=== PATIENT | female | born 1985 | race African-American/Black ===

== ENCOUNTER 2020-01-08 16:17 | Outpatient (REF) | payer BC, SELFPAY ==
[2020-01-08 16:47] LABS: MANUAL DIFF FLAG NO
[2020-01-08 16:51] LABS: Basophils Absolute Auto 0.1 X10*3/uL (0.0-0.2); Basophils Percent Auto 0.6 % (0-2); Eosinophils Absolute Auto 0.2 X10*3/uL (0.0-0.4); Eosinophils Percent Auto 2.3 % (0-4); Hematocrit 38.7 % (37-47); Hemoglobin 12.9 g/dl (12.0-16.0); Imm Gran Abs Auto 0.02 X10*3/uL (0.00-0.03); Imm Gran Pct Auto 0.2 % (0.0-0.4); Lymphocytes Absolute Auto 2.4 X10*3/uL (1.2-4.9); Lymphocytes Percent Auto 27.1 % (20-40); Mean Corpuscular HGB Conc 33.3 g/dl (31.0-35.0); Mean Corpuscular Hemoglobin 32.7 pg (27.0-33.0); Mean Corpuscular Volume 98.2 fL (80-98); Mean Platelet Volume 9.9 fL (9.4-12.3); Monocytes Absolute Auto 0.7 X10*3/uL (0.1-1.2); Monocytes Percent Auto 7.2 % (2-11); Neutrophils Absolute Auto 5.6 X10*3/uL (2.0-8.3); Neutrophils Percent Auto 62.6 % (45-73); Platelet Count 338 X10*3/uL (160-400); Red Blood Count 3.94 X10*6/uL (4.20-5.50); Red Cell Distribution Width 11.9 % (11.0-16.0)
[2020-01-08 17:18] LABS: Alanine Aminotransferase 12 U/L (0-31); Alkaline Phosphatase 151 U/L (39-117); Anion Gap 11 (12-20); Aspartate Amino Transferase 14 U/L (5-31); Bilirubin Total 0.4 mg/dL (0.0-1.0); Blood Urea Nitrogen 9 mg/dL (9-16); C Reactive Protein 0.55 mg/dL (< or = 0.50); Calcium 8.9 mg/dL (8.4-10.2); Carbon Dioxide 28 mmol/L (22-29); Chloride 103 mmol/L (96-108); Estimated Glomerular Filt Rate > 60; Glucose Random 97 mg/dL (60-115); Potassium 3.7 mmol/l (3.3-5.1); Sodium 138 mmol/L (135-145); Total Protein 7.2 g/dL (6.5-8.0)
[2020-01-08 17:36] LABS: Erythrocyte Sedimentation Rate 25 MM/HR (0-20)
[2020-01-08 17:38] LABS: Ferritin 92 ng/mL (10-122)
[2020-01-08 18:19] LABS: Folate > 20.0 ng/mL (> or = 4.0); Vitamin B12 743 pg/mL (200-900)
[2020-01-09 16:12] LABS: Immunoglobulin G 1614 mg/dL (600-1640)
[2020-01-11 16:31] LABS: Zinc 68 mcg/dL (60-130)
== END 2020-01-08 16:18 | disposition home or self-care (01) ==
LOC: HO.LAB 16:17
PROVIDERS: Visit Provider Internal Medicine Gastroenterology
DX: K50.90 Crohn's disease, unspecified, without complications (principal)
CPT/HCPCS: 36415; 80053; 82607; 82728; 82746; 82784; 84630; 85025; 85652; 86140

== ENCOUNTER 2020-01-31 | Outpatient (REF) | payer BC, SELFPAY ==
[2020-02-05 17:37] LABS: Calprotectin, Fecal 126 mcg/g
== END 2020-01-31 00:01 | disposition home or self-care (01) ==
LOC: CF
PROVIDERS: Visit Provider Internal Medicine Gastroenterology
DX: K50.90 Crohn's disease, unspecified, without complications (principal)
CPT/HCPCS: 83993; 87324; 87449

== ENCOUNTER → 2020-02-12 12:07 | Outpatient (BNVA) | payer BC, SELFPAY | PROVIDERS: PCP Physician Assistant Medical; Referring Provider Physician Assistant Medical; Visit Provider Internal Medicine Gastroenterology | DX: Z76.89 Persons encountering health services in other specified circumstances (principal) ==

== ENCOUNTER → 2020-04-15 14:02 | Outpatient (BNVA) | payer BC, SELFPAY | PROVIDERS: PCP Physician Assistant Medical; Visit Provider Internal Medicine Gastroenterology | DX: Z76.89 Persons encountering health services in other specified circumstances (principal) ==

== ENCOUNTER 2020-06-19 15:50 | Outpatient (REF) | payer BC, SELFPAY ==
--- NOTE | ~2020-06-19 | XR_ITS ---
EXAMINATION: XR THORACIC SPINE XR LUMBAR SPINE XR AP PELVIS CLINICAL INFORMATION: Dorsalgia COMPARISON: None TECHNIQUE: 3 views lumbar spine, 2 views dorsal spine and AP pelvis one view. FINDINGS: DORSAL SPINE: There is normal thoracic kyphosis. The vertebral heights, alignment and disc heights are normal. LUMBAR SPINE: There is normal lumbar lordosis. The vertebral heights, alignment and disc heights are normal. No visible acute fracture, dislocation or subluxation seen. Moderate stool is seen in the colon. The paravertebral soft tissues are normal. There is evidence of previous cholecystectomy. AP PELVIS: There is normal symmetry of bilateral SI joints and hip joints. No visible fracture or dislocation or lytic process seen. The soft tissues are normal. There is IUD within the pelvis. XR/XR thoracic spine 3V IMPRESSION: 1. Unremarkable dorsal spine exam. 2. Unremarkable lumbar spine exam. 3. Unremarkable AP pelvis.
--- NOTE | ~2020-06-19 | XR_ITS ---
EXAMINATION: XR THORACIC SPINE XR LUMBAR SPINE XR AP PELVIS CLINICAL INFORMATION: Dorsalgia COMPARISON: None TECHNIQUE: 3 views lumbar spine, 2 views dorsal spine and AP pelvis one view. FINDINGS: DORSAL SPINE: There is normal thoracic kyphosis. The vertebral heights, alignment and disc heights are normal. LUMBAR SPINE: There is normal lumbar lordosis. The vertebral heights, alignment and disc heights are normal. No visible acute fracture, dislocation or subluxation seen. Moderate stool is seen in the colon. The paravertebral soft tissues are normal. There is evidence of previous cholecystectomy. AP PELVIS: There is normal symmetry of bilateral SI joints and hip joints. No visible fracture or dislocation or lytic process seen. The soft tissues are normal. There is IUD within the pelvis. XR/XR pelvis 1-2V IMPRESSION: 1. Unremarkable dorsal spine exam. 2. Unremarkable lumbar spine exam. 3. Unremarkable AP pelvis.
--- NOTE | ~2020-06-19 | XR_ITS ---
EXAMINATION: XR THORACIC SPINE XR LUMBAR SPINE XR AP PELVIS CLINICAL INFORMATION: Dorsalgia COMPARISON: None TECHNIQUE: 3 views lumbar spine, 2 views dorsal spine and AP pelvis one view. FINDINGS: DORSAL SPINE: There is normal thoracic kyphosis. The vertebral heights, alignment and disc heights are normal. LUMBAR SPINE: There is normal lumbar lordosis. The vertebral heights, alignment and disc heights are normal. No visible acute fracture, dislocation or subluxation seen. Moderate stool is seen in the colon. The paravertebral soft tissues are normal. There is evidence of previous cholecystectomy. AP PELVIS: There is normal symmetry of bilateral SI joints and hip joints. No visible fracture or dislocation or lytic process seen. The soft tissues are normal. There is IUD within the pelvis. XR/XR lumbar spine 2-3V IMPRESSION: 1. Unremarkable dorsal spine exam. 2. Unremarkable lumbar spine exam. 3. Unremarkable AP pelvis.
[2020-06-19 18:04] LABS: MANUAL DIFF FLAG NO
[2020-06-19 18:19] LABS: Basophils Absolute Auto 0.1 X10*3/uL (0.0-0.2); Basophils Percent Auto 0.7 % (0-2); Eosinophils Absolute Auto 0.2 X10*3/uL (0.0-0.4); Eosinophils Percent Auto 2.9 % (0-4); Hematocrit 37.2 % (37-47); Hemoglobin 12.4 g/dl (12.0-16.0); Imm Gran Abs Auto 0.02 X10*3/uL (0.00-0.03); Imm Gran Pct Auto 0.3 % (0.0-0.4); Lymphocytes Absolute Auto 2.6 X10*3/uL (1.2-4.9); Lymphocytes Percent Auto 34.4 % (20-40); Mean Corpuscular HGB Conc 33.3 g/dl (31.0-35.0); Mean Corpuscular Hemoglobin 31.9 pg (27.0-33.0); Mean Corpuscular Volume 95.6 fL (80-98); Mean Platelet Volume 10.2 fL (9.4-12.3); Monocytes Absolute Auto 0.6 X10*3/uL (0.1-1.2); Monocytes Percent Auto 7.7 % (2-11); Neutrophils Absolute Auto 4.1 X10*3/uL (2.0-8.3); Platelet Count 325 X10*3/uL (160-400); Red Blood Count 3.89 X10*6/uL (4.20-5.50); White Blood Count 7.6 X10*3/uL (4.8-10.8)
[2020-06-19 19:06] LABS: Erythrocyte Sedimentation Rate 23 MM/HR (0-20)
[2020-06-19 19:37] LABS: Alanine Aminotransferase 9 U/L (0-31); Albumin Level 3.9 g/dL (3.5-5.0); Alkaline Phosphatase 153 U/L (39-117); Anion Gap 12 (12-20); Aspartate Amino Transferase 15 U/L (5-31); Bilirubin Total 0.5 mg/dL (0.0-1.0); Blood Urea Nitrogen 11 mg/dL (9-16); C Reactive Protein 0.28 mg/dL (< or = 0.50); Calcium 8.4 mg/dL (8.4-10.2); Carbon Dioxide 26 mmol/L (22-29); Chloride 103 mmol/L (96-108); Estimated Glomerular Filt Rate > 60; Glucose Random 76 mg/dL (60-115); Potassium 4.2 mmol/L (3.3-5.1); Sodium 137 mmol/L (135-145); Total Protein 7.2 g/dL (6.5-8.0)
== END 2020-06-19 15:51 | disposition home or self-care (01) ==
LOC: HO.LAB 15:50
PROVIDERS: Absent Provider Internal Medicine Gastroenterology; PCP Internal Medicine; Visit Provider Student in an Organized Health Care Education/Training Program
DX: K50.119 Crohn's disease of large intestine with unspecified complications (principal); M54.9 Dorsalgia, unspecified
CPT/HCPCS: 36415; 72072; 72100; 72170; 80053; 85025; 85652; 86140

== ENCOUNTER 2020-07-08 15:00 | Outpatient (RCR) | payer BC, SELFPAY ==
--- NOTE | 2020-06-28 16:52 | MHC.PT.EP ---
[facility] [place] Office [place] Office [place] Office [address] Adelita Regalado [address] [phone] F: [phone] F: [phone] F: [phone] F: [phone] Physical Therapy Plan of Care Date of Evaluation: 06/28/20 Date of Surgery: NA Diagnosis: DORSALGIA Assessment: Pt IS 35 YO F REFERRED TO PT FROM DR DE LA FUENET WITH DORSALGIA. PRESENTS WITH C/O 2 YR HX OF BACK PAIN OF INSIDIOUS ONSET. 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 PRESENTS WITH GOOD TRUNK ROM AND LE STRENGTH. HAS SOME DECREASED CORE STRENGTH AND DECREASED HS FLEXIBILITY. Pt REPORTS COMFORT WITH TRUNK LAT STRETCHING AND PRONE POSITION. SHOULD BENEFIT FROM PT TO ADDRESS THESE ISSUES. OF NOTE, Pt HAS 45$ COPAY SO MAY BENEFIT FROM 1X/WK. Frequency and Duration: The patient will be seen 1X/WK X 4 WKS Short Term Goals: 1. I HEP WITH DC EX PLAN 2. INCREASED AWARENESS POSTURE AND BACK CARE [place] Helper Goals: 1. DECREASED BACK PAIN AT LEAST 50% WITH ADLS 2. Pt TO PERF 2-3 TASKS WITH PROPER BODY MECH 3. INCREASED HS FLEXIBILITY 5-10 DEGREES B Treatment Plan: Modalities to reduce pain, spasms and effusion. Manual therapy to restore motion and function. Therapeutic exercise to improve strength and flexibility. Neuromuscular re-education for posture and balance. Therapeutic activities to return to functional activities of daily living. Electronically signed by: LUAN MILES PT Please sign and return to therapist. Thank you for your referral.
--- NOTE | 2020-07-27 14:13 | MHC.PT.DC ---
[place] Office [place] Office [place] Office [address] Adelita Regalado [address] [phone] F: [phone] F: [phone] F: [phone] F: [phone] Physical Therapy Discharge Report Diagnosis: DORSALGIA Date of Surgery: NA Date of Evaluation: 06/28/20 Date of Discharge: 07/27/20 Treatments to Date: 2 Cancellations to Date: No Shows to Date: Discharge Status: Improved Function Independent with HEP Patient Elected to Stop Discharge Summary: Pt LAST SEEN ON July REPORTING I THINK TODAY WILL BE MY LAST VISIT ..PER ASSESSMENT ON THAT DATE: Pt WITH GOOD PERF OF EXS/STRETCHES AND CUES, DIST EX SHEET AND OCHOA TB TODAY. ED THAT TYPICALLY SEE PtS MORE THAN 2 SESSIONS (Pt HAS 45$ CO-PAY). MD [place] SOON Electronically signed by: LUAN MILES PT Please sign and return to therapist. Thank you for your referral.
== END 2020-07-27 14:14 | disposition other institution (70) ==
LOC: HO.PT 15:00
PROVIDERS: PCP Internal Medicine; Visit Provider Student in an Organized Health Care Education/Training Program
DX: M54.9 Dorsalgia, unspecified (principal)
CPT/HCPCS: 97110; 97140; 97161

== ENCOUNTER 2020-07-22 18:11 | Outpatient (REF) | payer BC, SELFPAY ==
[2020-07-29 21:17] LABS: Calprotectin, Fecal 77 mcg/g
== END 2020-07-22 18:12 | disposition home or self-care (01) ==
LOC: HO.LNP 18:11
PROVIDERS: Visit Provider Internal Medicine Gastroenterology
DX: M54.9 Dorsalgia, unspecified (principal); K50.119 Crohn's disease of large intestine with unspecified complications
CPT/HCPCS: 83993

== ENCOUNTER → 2020-07-23 13:16 | Outpatient (BNVA) | payer BC, SELFPAY | PROVIDERS: PCP Internal Medicine Medical Oncology; Visit Provider Internal Medicine Gastroenterology ==

== ENCOUNTER → 2020-09-19 15:21 | Outpatient (BNVA) | payer BC, SELFPAY | PROVIDERS: Visit Provider Student in an Organized Health Care Education/Training Program ==

== ENCOUNTER 2021-02-04 14:29 | Outpatient (REF) | payer BC, SELFPAY ==
[2021-02-04 15:31] LABS: MANUAL DIFF FLAG NO
[2021-02-04 15:39] LABS: Basophils Absolute Auto 0.1 X10*3/uL (0.0-0.2); Basophils Percent Auto 0.6 % (0-2); Eosinophils Absolute Auto 0.3 X10*3/uL (0.0-0.4); Eosinophils Percent Auto 3.7 % (0-4); Hematocrit 38.5 % (37.0-47.0); Hemoglobin 12.6 g/dl (12.0-16.0); Imm Gran Abs Auto 0.03 X10*3/uL (0.00-0.03); Imm Gran Pct Auto 0.3 % (0.0-0.4); Lymphocytes Absolute Auto 2.5 X10*3/uL (1.2-4.9); Lymphocytes Percent Auto 28.3 % (20-40); Mean Corpuscular HGB Conc 32.7 g/dl (31.0-35.0); Mean Corpuscular Hemoglobin 31.3 pg (27.0-33.0); Mean Corpuscular Volume 95.5 fL (80.0-98.0); Mean Platelet Volume 9.4 fL (9.4-12.3); Monocytes Absolute Auto 0.7 X10*3/uL (0.1-1.2); Monocytes Percent Auto 7.5 % (2-11); Neutrophils Absolute Auto 5.32 x10*3/uL (2.0-8.3); Neutrophils Percent Auto 59.6 % (45-73); Platelet Count 317 X10*3/uL (160-400); Red Blood Count 4.03 X10*6/uL (4.20-5.50); Red Cell Distribution Width 12.9 % (11.0-16.0); White Blood Count 8.9 X10*3/uL (4.8-10.8)
[2021-02-04 16:04] LABS: Alanine Aminotransferase 11 U/L (0-31); Alkaline Phosphatase 159 U/L (39-117); Anion Gap 12 (12-20); Aspartate Amino Transferase 15 U/L (5-31); Bilirubin Total 0.2 mg/dL (0.0-1.0); Blood Urea Nitrogen 11 mg/dL (9-16); Calcium 8.7 mg/dL (8.4-10.2); Carbon Dioxide 27 mmol/L (22-29); Chloride 103 mmol/L (96-108); Estimated Glomerular Filt Rate > 60; Glucose Random 102 mg/dL (60-115); Potassium 4.2 mmol/L (3.3-5.1); Sodium 138 mmol/L (135-145); Total Protein 7.5 g/dL (6.5-8.0)
== END 2021-02-04 14:30 | disposition home or self-care (01) ==
LOC: HO.LAB 14:29
PROVIDERS: Visit Provider Internal Medicine Gastroenterology
DX: K75.81 Nonalcoholic steatohepatitis (NASH) (principal); K50.119 Crohn's disease of large intestine with unspecified complications
CPT/HCPCS: 36415; 80053; 85025; 86140

== ENCOUNTER 2021-11-06 13:16 | Outpatient (REF) | payer BC, SELFPAY ==
[2021-11-06 13:38] LABS: MANUAL DIFF FLAG NO
[2021-11-06 14:10] LABS: Basophils Absolute Auto 0.1 X10*3/uL (0.0-0.2); Basophils Percent Auto 0.8 % (0-2); Eosinophils Absolute Auto 0.2 X10*3/uL (0.0-0.4); Eosinophils Percent Auto 3.3 % (0-4); Hematocrit 39.8 % (37.0-47.0); Hemoglobin 13.1 g/dl (12.0-16.0); Imm Gran Abs Auto 0.03 X10*3/uL (0.00-0.03); Imm Gran Pct Auto 0.4 % (0.0-0.4); Lymphocytes Absolute Auto 2.3 X10*3/uL (1.2-4.9); Lymphocytes Percent Auto 32.3 % (20-40); Mean Corpuscular HGB Conc 32.9 g/dl (31.0-35.0); Mean Corpuscular Volume 94.3 fL (80.0-98.0); Mean Platelet Volume 9.9 fL (9.4-12.3); Monocytes Absolute Auto 0.4 X10*3/uL (0.1-1.2); Monocytes Percent Auto 5.5 % (2-11); Neutrophils Absolute Auto 4.2 x10*3/uL (2.0-8.3); Neutrophils Percent Auto 57.7 % (45-73); Platelet Count 374 X10*3/uL (160-400); Red Blood Count 4.22 X10*6/uL (4.20-5.50); Red Cell Distribution Width 12.7 % (11.0-16.0); White Blood Count 7.3 X10*3/uL (4.8-10.8)
[2021-11-06 14:38] LABS: Alanine Aminotransferase 9 U/L (0-31); Albumin Level 4.2 g/dL (3.5-5.0); Alkaline Phosphatase 165 U/L (39-117); Anion Gap 14 (12-20); Aspartate Amino Transferase 14 U/L (5-31); Bilirubin Total 0.3 mg/dL (0.0-1.0); Blood Urea Nitrogen 13 mg/dL (9-16); C Reactive Protein 0.64 mg/dL (< or = 0.50); Carbon Dioxide 23 mmol/L (22-29); Chloride 107 mmol/L (96-108); Estimated Glomerular Filt Rate > 60; Glucose Random 79 mg/dL (60-115); Potassium 4.1 mmol/L (3.3-5.1); Sodium 140 mmol/L (135-145); Total Protein 7.8 g/dL (6.5-8.0)
[2021-11-06 14:48] LABS: Erythrocyte Sedimentation Rate 33 MM/HR (0-20)
[2021-11-11 17:01] LABS: TS Negative Control Passed; TS Panel A 0; TS Panel B 0; TS Positive Control Passed; TSpotTB Negative (Negative)
== END 2021-11-06 13:17 | disposition home or self-care (01) ==
LOC: HO.LAB 13:16
PROVIDERS: Visit Provider Internal Medicine Gastroenterology
DX: Z11.1 Encounter for screening for respiratory tuberculosis (principal); K50.119 Crohn's disease of large intestine with unspecified complications; K75.81 Nonalcoholic steatohepatitis (NASH)
CPT/HCPCS: 36415; 80053; 85025; 85652; 86140; 86481

== ENCOUNTER → 2022-06-01 13:59 | Outpatient (BNVA) | payer BC, SELFPAY | PROVIDERS: Visit Provider Internal Medicine Gastroenterology | DX: Z13.89 Encounter for screening for other disorder (principal) ==

== ENCOUNTER 2024-10-16 11:52 | Outpatient (AMB) | payer OTHER, SELFPAY ==
--- NOTE | 2024-10-16 11:53 | MHC.OFFVIS ---
Intake Visit Reasons: f/u to continue humira Intake Note: Toshia presents in the office as a telehealth today to continue taking her humira CC: She states that she is not having any concerns at this time - insurance just needs her to have a visit to continue humira! 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 had some diarrhea 12/2019 for 1 week and labs rechecked with mild crp elevation and raised fecal dayna 126 after having been neg previously fecal calprotectin 07/2020-- INTERIM: she is doing well no major complaints still taking imuran she has been good with pap smears she is overdue on her colonoscopy joints are normal EXAM Looks well relaxed comfortable Assessment & Plan (1) Crohn's disease: 1/ appears to be in ongoing clinical remission, no major complaints, neg fecal dayna in past chronic elevated alk phos from A1AT defc PLAN: 1/ Repeat labs now, check TB spot 2/ cont with humira 80 mg and imuran low dose 3/ colonoscopy with suprep -screening [facility] Surgical History Hx of cholecystectomy Hx of colonoscopy Family History Father No problems noted. Mother Diabetes HTN (hypertension) Social History Household Members: None Alcohol intake: current Alcohol intake frequency: holidays/special occasions only Alcohol type: wine Patient Tobacco Use Status: Never used Tobacco Telehealth Telehealth Telehealth Platform: Doximity Location of provider rendering services: practice address Location of patient: address on file Patient Identification confirmed using: Name, : Yes Telehealth method: video Patient verbally consented to treatment: Yes Patient verbally consented to billing insurance company: Yes Patient informed of any privacy concerns related to visit: Yes Minutes spent on Phone/Video with Pt.: 5 Assessment & Plan Assessment & Plan (1) Crohn's disease: Code(s): K50.90 - Crohn's disease, unspecified, without complications Category: Medical Qualifiers: Gastrointestinal tract location: large intestine Digestive disease complication type: unspecified complication Qualified Code(s): K50.119 - Crohn's disease of large intestine with unspecified complications Plan as above Coding Level of Care Code Tele Est Pt Level 3 (39791) Diagnoses Crohn's disease of large intestine with complication K50.119 Gastrointestinal tract location: large intestine Digestive disease complication type: unspecified complication
--- OUTSIDE RECORDS SUMMARY | 2024-10-16 12:59 | XMS_ITS | Clinical Summary ---
Author Organization Formerly [facility] Address [address] [place] [address] Care Team Providers Care Flower Cheniller Name Role Phone Pcp, No Primary Care Provider Unavailabl e Allergies Active Allergy Reactions Criticality Noted Date Comments Sulfamethoxazole-Trimethoprim Hives Medium 2019 Medications venlafaxine (Effexor XR) 150 MG 24 hr capsule Take 150 mg by mouth daily. Active drospirenone-et hinyl estradiol (DEBBIE) 3-0.02 MG per tablet Take 1 tablet by mouth daily. Active adalimumab (HUMIRA) 80 MG/0.8ML pen-injector kit Inject 80 mg under the skin once. Active predniSONE (DELTASONE) 20 MG tabletIndicatio ns:Bronchospasm Take 2 tablets (40 mg total) by mouth daily. 10 tablet 05/21/2019 Active Active Problems No known active problems Social History Tobacco Use Types Packs/Day Years Used Date Smoking Tobacco: Never Smokeless Tobacco: Never Alcohol Use Standard Drinks/Week Comments Never 0 (1 standard drink = 0.6 oz pur e alcohol) AUDIT-C Answer Date Recorded Frequency of Alcohol Consumption Never 05/21/2019 Average Number of Drinks Not on file 020 Frequency of Binge Drinking Not on file 05/06 Comments Unknown Sex and Gender Information Value Date Recorded Sex Assigned at Not on file Legal Sex Female 9:14 AM EST Gender Identity Not on file Sexual Orientation Not on file Last Filed Vital Signs Vital Sign Reading Time Taken Comments Blood Pressure 122/80 05/21/2019 9:24 AM EST Pulse 97 05/21/2019 9:24 AM EST Temperature 37.1 C (98.7 F) 05/21/2019 9:24 AM EST Respiratory Rate 20 05/21/2019 9:24 AM EST Oxygen Saturation 95% 05/21/2019 9:24 AM EST Inhaled Oxygen Concentration - - Weight - - Height - - Body Mass Index - - Plan of Treatment Health Maintenance Due Date Last Done Comments Hepatitis C Virus Screening 1983 COVID-19 Vaccine (#1) 01/29/1988 Quantiferon Gold TB 1993 HIV Screening 01/29/1996 DTaP/Tdap/Td Vaccines (1 - Tdap) 2002 Hepatitis B Vaccines (1 of 3 - 19+ 3-dose series) 2002 Pneumococcal Vaccine: Pediat jj (0-5 Years) and At-Risk Patients (6 to 49 Years) (1 of 2 - PCV) 2002 Pap Smear (Ages 21-65) 01/29/2004 Mammogram 2023 Influenza Vaccine 11/03/2024 HPV Vaccines Aged Out No longer eligi ble based on patient's age to complete this topic Insurance [facility] [place] Teams Flower Cheniller Relationship Specialty Start Date End Date Pcp, No PCP - General General Medicine 04/05/19
--- OUTSIDE RECORDS SUMMARY | 2024-10-16 12:59 | XMS_ITS | Data Portability ---
Author Organization [facility], [address] Address [address] [place] [address] Assessment No assessment recorded. Plan of Treatment Reminders Order Date Submit Date Provider Last Modified By Organization Details Last Modified Time Details Appointments None recorded. Lab None recorded. Referral None recorded. Procedures None recorded. Surgeries None recorded. Imaging None recorded. Medication Orders cephalexin 500 mg capsule 2023 024 [id number], [phone] [place], [address], 19:46:33 Patient TargetsNo targets recorded. Patient Instructions Encounter Date Encounter Id Patient Instructions Last Modified By Organization Details Last Modified Time 10/02/2023 [id number] Discharge Instructions - Wound Care - Wash the wound gently with soap and warm water once daily. Otherwise keep wound clean, dry and covered with a dressing. - Do not immerse in water, and do not use alcohol or peroxide to clean. Do not use iodine or mercurochrome. - Elevate to decrease pain and improve healing. - Minimize use of affected body part. - Return here or see your doctor for any sign of infection, including redness, swelling, pus or increased pain. - Return for wound check in 2 or 3 days. - Return to have stitches removed in 10 days. General recommendations: Scalp- 7 days Face- 5 day over joints - 14 days Hands/feet- 12 days Other areas - 10 days - If you received a tetanus shot the site may become sore and you may develop a low-grade fever. Take Tylenol if you have fever or pain. Return for a more severe reaction. - See your doctor or return here if not improving in 3 days. [email or web address] Not available 10/02/2023 19:43:46 Reason for Referral None Reported. Problems Name Problem SNOMED Code Status Onset Date Resolution Date Notes Provider Name and Address Organization Details Recorded Time Depressive disorder 13158336 Active Darby owen, [place] - [facility] 18:52:35 Asthma 691746099 Active Darby owen, [place] - [facility] 18:52:56 Laceration of left forearm 5005990029717 9104 Active 2023 Hunter Moore NP [address] , [place], [address], [place] - [facility] 19:44:02 Problem Notes None recorded. Procedures Surgical History Date Name Laterality Status Provider Name and Address Organization Details Recorded Time 10/02/19 24 Laceration, Simple Repair, (scalp/neck/trun k/genitalia/extr emities) 2.6-7.5cm completed Hunter Moore NP [address], [place], [address], [place] - [facility] 10/02/2023 19:43:36 laparoscopic sleeve gastrectomy completed Darby Sanchez PA - [facility] 10/02/2023 18:55:06 Imaging Results None recorded. Procedure Notes None recorded. Medical Equipment None Reported. Allergies Allergen ID Allergen Name Allergen Category Reaction Reaction Severity Criticality Documentation Date Start Date Code Code System Note Provider Name and Address Organization Details Recorded Time 689403 Bactrim medicatio n Not available Not available Not available 10/02/2023 43449 9 RxNorm Darby owen, [place] - [facility] 18:52:05 Medications Name Sig Start Date Stop Date Status Note LastModified by Organization Details LastModified Time venlafaxine ER 75 mg capsule,extend ed release 24 hr active Not Available Not Available Not Available venlafaxine ER 150 mg capsule,extend ed release 24 hr active Not Available Not Available Not Available topiramate 25 mg tablet active Not Available Not Available No t Available cephalexin 500 mg capsule TAKE 1 CAPSULE EVERY 8 HOURS BY ORAL ROUTE WITH MEAL(S) FOR 5 DAYS, FOR SKIN INFECTION . active Not Available Not Available No t Available fluticasone propionate 50 mcg/actuation nasal spray,suspensi on TAKE 1 SPRAY INTO NOSTRIL(S ) DAILY active Not Available Not Available No t Available topiramate 50 mg tablet active Not Available Not Available No t Available Humira(CF) Pen 80 mg/0.8 mL subcutaneous kit active Not Available Not Available Not Available Vitals Date Recorded Body height Body mass index (BMI) Body weight Oxygen saturation Oxygen saturation in Arterial blood by Pulse oximetry Heart rate Respiratory rate Systolic And Diastolic Provider Name and Address Organization Details Last Updated DateTime 170.18 cm 37.6 kg/m2 888363. 17 g 96 % 96 % 95 /min 20 /min 117/81 mm[Hg] Darby GREENE [facility] 18:51:00 Social History Question Answer Notes LastModified by [employer] Details LastModified Time Tobacco Smoking Status Never Smoker [facility] 10/02/2023 18:53:57 Which Illicit Or Recreational Drugs Have You Used? Butler Information not available 10/02/2023 Have You Had A Flu Shot This Season? No Information not available 10/02/2023 If No, Would You Like A Flu Shot Today? No Information not available 10/02/2023 Have You Had Direct Contact, Or Contact During Intimacy, With Monkeypox Rash, Scabs, Or Body Fluids From A Person With Monkeypox? No Information not available 10/02/2023 What Was The Date Of Your Most Recent Tobacco Screening? 10/02/2023 Information not available 10/02/2023 What Is Your Relationship Status? Single Information not available 10/02/2023 Have You Recently Traveled Abroad? No Information not available 10/02/2023 Sex: Unknown Functional Status Question Answer Note LastModified by [employer] Details LastModified Time Do you use any illicit or recreational drugs? Yes Information not available 10/02/2023 Do you or have you ever used any other forms of tobacco or nicotine? No Information not available 10/02/2023 What is your level of alcohol consumption? None Information not available 10/02/2023 Mental Status None recorded. Family History Relationship Description Onset Age of this Age Resolved Age Notes LastModified by Organization Details LastModified Time Father No current problems or disability Not available 10/01 18:53:33 Mother No current problems or disability Not available 10/01 18:53:33 Medical History No medical history recorded. Gynecological History Statement/Question Response Date of LMP Is there any chance of ? No Obstetrics History GPAL:G 0 P 0 0 0 0 Immunizations Vaccine Type Date Status Note Provider Nam e and Address Organization Details Recorded Time Td (adult), 2 Lf tetanus toxoid, preservative free, adsorbed 4 completed Hunter Moore NP [address] [place], [address], [place] - [facility] 10/04/2023 19:38:09 Past Encounters Encounter ID Performer Location Encounter Start Date Encounter Closed Date Diagnosis/Indication Diagnosis SNOMED-CT Code Diagnosis ICD10 Code Diagnosis Note [id number] [address] [place] [address] 08/05/2017 08:42:02 08/05/2017 10:00:53 [id number] [address] [place] [address] 07/17/2016 08:09:40 07/17/2016 08:59:41 [id number] [address] [place] [address] 06/06/2016 15:25:08 06/06/2016 16:54:11 [id number] [address] [place] [address] 06/08/2016 09:20:21 06/08/2016 10:08:30 [id number] [address] [place] [address] 06/21/2016 08:03:17 06/21/2016 08:34:43 [id number] [address] [place] [address] 12/21/2016 17:47:28 12/21/2016 19:01:39 [id number] [address] [place] [address] 09/06/2016 15:03:21 09/06/2016 15:47:19 [id number] [address] [place] [address] 02/15/2017 16:49:27 02/15/2017 17:45:42 [id number] [address] [place] [address] 02/01/2016 08:39:28 02/01/2016 09:26:46 [id number] [address] [place] [address] 11/01/2014 15:19:01 11/01/2014 16:36:36 [id number] [address] [place] [address] 05/17/2017 08:23:52 05/17/2017 09:16:11 [id number] [address] [place] [address] 06/04/2016 15:43:43 06/04/2016 16:13:15 [id number] [place] [address] [place] [address] 10/02/2023 18:45:53 10/02/2023 19:49:23 Laceration of left forearm [id number] S51.812A The laceration was sutured today, the following are the care instructio ns to promote healing and reduce complicati ons: 1. For the next 48 hours do not submerge the injury in water, if you do get it wet remove dressing and replace with a new one once the area drys out. 2. Keep for bending or stretching the area for the next 72 hours. This is the most important to promote the wound will heal together and have a good cosmetic outcome. Keep the area covered to help prevent bending but don't make the dressing too tight. 3. Keep a dressing on the wound for the next 5-7 days, but you need to change it daily after the first 48 hours. Try to leave the original dressing on and dry. After 72 hours, try to leave the area open to the air at night. 4. Watch for any signs of infection this would be: Increasing Redness, Warmth, Pain, Swelling, Purulent discharge. If this occurs you need to return right away so we can assess if some of those sutures need to be removed. 5. Do not put any Creams/Jak sporin/Lot ions on the area. You want the wound to harden and heal - not stay soft. Return in 10 days to have the sutures removed. If you would prefer to see you PCP that would be ok, but we are happy to do that for you. After the sutures are removed I would advise using Mederma 2x daily for 60 days to help to reduce scarring. Also using sunscreen for several months on the area is important. Thank you for using [facility] , please don't hesitate to contact us if you have any questions or concerns. Administra tion of tetanus vaccine [id number] Z23 Health Concerns Section Related Observation LastModified by Organization Detai ls LastModified Time None Recorded Concern Status LastModified by Organization Details LastModified Time None Recorded Advance Directives Directive None Recorded Payers Insurance Date Sequence Insurance Name Policy Number Policy Chatman Covered Member ID Chatman Member ID Guarantor Name 10/04/2023 1 [facility] [place] [place] Toshia Banks [id number] Toshia Banks 10/02/2023 1 [facility] ([place]) [id number] Toshia Banks [id number] Toshia Gutierrez Banks Notes Date Note Type Note Provider Name and Address Organization Details Recorded Time 10/02/2023 text/html UC Wound/LacerationR eported bypatient.Locatio n:arms; cut left forearm with knife while cutting fruit. happen 2 hours ago. Quality:no undermining; no cellulitis; no drainage; no eschar;moderate bleeding; laceration Severity:severe Duration:2 hours Onset/Timing:date of initial injury: 10/02/2023 Context:trauma Associated Symptoms:no fever; no bruising; no tingling; normal sensation;numbnes s Hunter Moore NP [address] [place], [address], [place] - [facility] 10/04/2023 19:38:12 OBGyn Episode No OBEpisode recorded.
--- OUTSIDE RECORDS SUMMARY | 2024-10-16 12:59 | XMS_ITS | Clinical Summary ---
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 Pathology suggestive of mild-moderate active colitis of the distal colon/rectum. ? Crohns Disease. ABDOMINAL SURGERY 05/16/2015 PROCEDURE: [place] UNLISTED PROCEDURE ABDOMEN PERITONEUM & OMENTUM; COMMENT: RSO and lysis of adhesions GASTRIC BYPASS 10/10/2018 PROCEDURE: OH GASTRIC RSTCV W/BYP W/SM INT RCNSTJ LIMIT ABSRPJ; COMMENT: sleeve CHOLECYSTECTOMY PROCEDURE: OH CHOLECYSTECTOMY Medical History Medical History Date Comments Asthma DX:Asthma Anxiety DX:Anxiety Depression DX:Depression WAYNE (obstructive sleep apnea) 01/24/2015 DX :WAYNE (obstructive sleep apnea) Crohn's colitis ([facility] V24 , [facility] V28) 04/29/2016 DX:Crohn's colitis (HCC) Morbid obesity with BMI of 4 0.0-44.9, adult (CMS/HCC V24, CMS/HCC V28) 03/20/2013 DX:Morbid obesity wit h BMI of 40.0-44.9, adult (HCC) Dysthymic disorder 08/29/2014 DX:Dysthymic disorder Eating disorder 09/19/2014 DX:Eating disord er Generalized anxiety disorder 04/08/2016 DX: Generalized anxiety disorder Family History Medical History Relation Name Comments Alcohol/Drug Father recovering now Hypertension Mother Alcohol/Drug Sister current Breast cancer Neg Hx Colon cancer Neg Hx Ovarian cancer Neg Hx Relation Name Status Comments Father Alive alcohol and berhane g addiction Mother Alive asthma, HTN Sister Alive Social History Tobacco Use Types Packs/Day Years Used Date Smoking Tobacco: Never Smokeless Tobacco: Never Alcohol Use Standard Drinks/Week Comments Not Currently 0 (1 standard drink = 0.6 oz pur e alcohol) Comments Unknown Sex and Gender Information Value Date Recorded Sex Assigned at Not on file Legal Sex Female 2:51 PM EST Gender Identity Not on file Sexual Orientation Not on file Obstetrics History Last Filed Vital Signs Vital Sign Reading Time Taken Comments Blood Pressure 114/82 10/09/2022 9:11 AM EDT Pulse 80 10/09/2022 9:11 AM EDT Temperature - - Respiratory Rate - - Oxygen Saturation - - Inhaled Oxygen Concentration - - Weight 106 kg (233 lb 3.2 oz) 10/09/2022 9:11 AM EDT Height 170.2 cm (5' 7 ) 10/09/2022 9:11 AM EDT Body Mass Index 36.52 10/09/2022 9:11 AM EDT Plan of Treatment Health Maintenance Due Date Last Done Comments Breast Cancer Screening 1983 Hepatitis B Vaccines (1 of 3 - 19+ 3-dose series) 2002 Cervical Cancer Screening: HPV 01/29/2004 Pneumococcal Vaccine: Pediatrics (0 to 5 Years) and At-Risk Patients (6 to 49 Years) (2 of 2 - PCV) 01/19/2015 01/19/2014 DTaP,Tdap,and Td Vaccines (2 - Td or Tdap) 02/19/2021 02/19/2011 Depression Screening 03/14/2022 HIV Screening 03/14/2022 Hepatitis C Screening 03/14/2022 Social Influencers of Health Screening 03/14/2022 COVID-19 Vaccine (4 - 2023-2 5 season) 2023 02/11/2021, 07/19/2020, 06/27/2020 Influenza Vaccine (#1) 2024 7, 01/16/2016, 10/28/2010 HIB Vaccines Aged Out No longer eligi ble based on patient's age to complete this topic HPV Vaccines Aged Out No longer eligi ble based on patient's age to complete this topic Hepatitis A Vaccines Aged Out No long er eligible based on patient's age to complete this topic IPV Vaccines Aged Out No longer eligi ble based on patient's age to complete this topic MMR Vaccines Aged Out No longer eligi ble based on patient's age to complete this topic Meningococcal ACWY Vaccine Aged Out N o longer eligible based on patient's age to complete this topic Meningococcal B Vaccine Aged Out No l onger eligible based on patient's age to complete this topic RSV Immunization Patients Under 20 months Aged Out No longer eligible b ased on patient's age to complete this topic Varicella Vaccines Aged Out No longer eligible based on patient's age to complete this topic Care Teams Head Bone Grinder Relationship Specialty Start Date End Date Jose Saleh MD [address] [facility] [place] [address] PCP - General 02/03/21
== END 2024-10-16 14:57 | disposition home or self-care (01) ==
LOC: HO.HGI 11:52
PROVIDERS: Visit Provider Internal Medicine Gastroenterology
DX: K50.119 Crohn's disease of large intestine with unspecified complications (principal)
CPT/HCPCS: 98005

== ENCOUNTER 2024-10-16 11:52 | Outpatient (REF) | payer OTHER, SELFPAY ==
[2024-10-16 14:20] LABS: MANUAL DIFF FLAG NO
[2024-10-16 15:43] LABS: Hematocrit 36.4 % (37.0-47.0); Hemoglobin 11.8 g/dl (12.0-16.0); Imm Gran Abs Auto 0.03 X10*3/uL (0.00-0.03); Imm Gran Pct Auto 0.5 % (0.0-0.4); Lymphocytes Absolute Auto 2.2 X10*3/uL (1.2-4.9); Mean Corpuscular HGB Conc 32.4 g/dl (31.0-35.0); Mean Corpuscular Hemoglobin 30.2 pg (27.0-33.0); Mean Corpuscular Volume 93.1 fL (80.0-98.0); NRBC Abs Auto 0.000 X10*3/uL (0.0-0.012); NRBC Pct Auto 0.0 /100WBC (0.0-0.2); Platelet Count 366 X10*3/uL (160-400); Red Blood Count 3.91 X10*6/uL (4.20-5.50); White Blood Count 6.5 X10*3/uL (4.8-10.8)
[2024-10-16 16:43] LABS: Alanine Aminotransferase 17 U/L (0-31); Albumin Level 3.9 g/dL (3.5-5.0); Alkaline Phosphatase 143 U/L (39-117); Anion Gap 9 (12-20); Aspartate Amino Transferase 20 U/L (5-31); Blood Urea Nitrogen 11 mg/dL (9-16); Calcium 8.5 mg/dL (8.4-10.2); Carbon Dioxide 27 mmol/L (22-29); Chloride 107 mmol/L (96-108); Estimated Glomerular Filt Rate > 60; Potassium 3.5 mmol/L (3.3-5.1); Sodium 139 mmol/L (135-145); Total Protein 7.3 g/dL (6.5-8.0)
[2024-10-16 16:59] LABS: Ferritin 48 ng/mL (10-250)
[2024-10-19 07:59] LABS: TS Negative Control Passed; TS Panel A 0; TS Panel B 0; TS Positive Control Passed; TSpotTB Negative (Negative)
== END 2024-10-16 11:53 | disposition home or self-care (01) ==
LOC: HO.LAB 11:52
PROVIDERS: Visit Provider Internal Medicine Gastroenterology
DX: K75.81 Nonalcoholic steatohepatitis (NASH) (principal); K50.119 Crohn's disease of large intestine with unspecified complications; Z11.7 Encounter for testing for latent tuberculosis infection; Z79.624 Long term (current) use of inhibitors of nucleotide synthesis; Z79.620 Long term (current) use of immunosuppressive biologic
CPT/HCPCS: 36415; 80053; 82728; 85025; 86140; 86481

== ENCOUNTER 2025-01-25 07:56 | Day surgery (SDC) | payer OTHER, SELFPAY ==
--- OUTSIDE RECORDS SUMMARY | 2025-01-02 06:51 | XMS_ITS ---
Author Name [facility] Organization Unknown Care Team Organization Name Specialty Phone Email Start Date End [facility] Jose Saleh Primary Care 02/10/20222023
--- OUTSIDE RECORDS SUMMARY | 2025-01-02 06:51 | XMS_ITS | Encounter Summary ---
Author Organization [facility] Address [address] [place] [address] Care Team Providers Care Automobile Service Station Mechanic Name Role Phone Chelo Perez DO Primary Care Provider [phone] Reason for Visit * Reason Onset Date Comments Referral 12/08/2024 Encounter Details Date Type Department Care Team (Late st Contact Info) Description 12/08/2024 Telephone Internal Medicine - [facility] [address] [place] [address] Chelo Perez DO [address] [place] [address] Social History Tobacco Use Types Packs/Day Years Used Date Smoking Tobacco: Never Smokeless Tobacco: Never Alcohol Use Standard Drinks/Week Comments Not Currently 0 (1 standard drink = 0.6 oz pur e alcohol) Comments Unknown Sex and Gender Information Value Date Recorded Sex Assigned at Not on file Legal Sex Female 2:51 PM EST Gender Identity Not on file Sexual Orientation Not on file documented as of this encounter Progress Notes * Shanthi Trejo LPN - 12/08/2024 9:18 AM EDT Pt JONO 09/21/22. Pt must be seen first. Appt 12/26 with Jorden * Charis Wright - 12/08/2024 8:35 AM EDT Referral Request: What insurance does the patient have today? Otis deanighstefanie perez Referrals cannot be processed if the insurance is not accurate. If the insurance listed above in red is NO BILLING INFORMATION FOUND FOR THIS ENCOUTNER The patients correct insurance must be obtained and registered in [facility] or their referral can not be processed. Who is calling to request this referral? Faxed - [facility] If the caller is not the patient, what is their name? not applicable FIRST and LAST NAME of SPECIALIST PATIENT is seeing: Maryann Mcclendon [phone] What specialty is this? gastro DIAGNOSIS Patient is being seen for (Not a body part or a procedure): k50.119 Address of Specialist: [address] [place] [address] [address] [place] [address] Phone # of Specialist: [phone] Fax #: (if applicable): [phone] Does patient have an appointment scheduled?: yes Date of appointment- (including a retro-request): 10/16/24 Is this appointment related to: Not MVA, worker compensation, or surgery related wv radha deanighstefanie perez documented in this encounter Plan of Treatment Upcoming Encounters Date Type Department Care Team (Late st Contact Info) Description 06/26/2025 9:00 AM EDT Office Visit Internal Medicine - [facility] [address] [place], [place] [phone] Anibal Simental PA [address] [place] [address] documented as of this encounter Visit Diagnoses Not on filedocumented in this encounter Care Teams Automobile Service Station Mechanic Relationship Specialty Start Date End Date Chelo Perez DO [address] [place] [address] PCP - General Internal Medicine 11/02/24 documented as of this encounter
--- OUTSIDE RECORDS SUMMARY | 2025-01-02 06:51 | XMS_ITS | Clinical Summary ---
Author Organization [facility] Address [address] [place] [address] Care Team Providers Care Arresting Gear Operator Name Role Phone Pcp, No Primary Care [...] (1 of 3 - 19+ 3-dose series) 01/04 Pneumococcal Vaccine: Pediat jj (0-5 Years) and At-Risk Patients (6 to 49 Years) (1 of 2 - PCV) 2002 Pap Smear (Ages 21-65) 01/29/2004 Mammogram 2023 Influenza Vaccine 11/03/2024 HPV Vaccines (No Doses Required) Completed Insurance [facility] [place] [facility] Care Teams Arresting Gear Operator Relationship Specialty Start Date End Date Pcp, No PCP - General General Medicine 04/05/19
--- OUTSIDE RECORDS SUMMARY | 2025-01-02 06:51 | XMS_ITS | Clinical Summary ---
Author Organization [facility] [address] [facility] Address [address] [place] [address] Phone Care Team Providers Care Electrical And Radio Aircraft Mechanic Name Role Phone Chelo Mancia DO Primary Care Provider [phone] Allergies Active Allergy Reactions Criticality Noted Date Comments Sulfamethoxazole-Trimethoprim 2012 Rash and itch hands Medications adalimumab (Humira) 40 mg/0.8 mL syringe Inject 0.8 mL (40 mg total) under the skin every 14 (fourteen) days. 10/26/2015 Active venlafaxine XR (EFFEXOR-XR) 75 mg 24 hr capsule Take 1 capsule (75 mg total) by mouth 1 (one) time each day. Active venlafaxine XR (EFFEXOR-XR) 150 mg 24 hr capsule Take 1 capsule (150 mg total) by mouth 1 (one) time each day. Active Hyrimoz,CF, Pen 80 mg/0.8 mL pen Inject 0.8 mL (80 mg total) under the skin every 14 (fourteen) days. 12/23/2024 Active naltrexone 1.5 mg capsule Take 4 mg by mouth 1 (one) time each day. 04/27/2024 Active albuterol HFA (PROAIR HFA ; PROVENTIL HFA ; VENTOLIN HFA) 90 mcg/actuation inhaler Inhale 2 puffs by mouth every 6 hours as needed. 02/27/2024 Active Active Problems Problem Noted Date Diagnosed Date COVID 12/19/2021 Labial hypertrophy 12/18/2020 Elevated alkaline phosphatase level 10/05/2017 Overview (12/08/2024): Has been evaluated by gastroenterology. Had a liver biopsy. Crohn's colitis ([facility] V24, [facility] V28) 04/29 Generalized anxiety disorder 04/08/2016 WAYNE (obstructive sleep apnea) 01/24/2015 Eating disorder 09/19/2014 Dysthymic disorder 08/29/2014 Asthma 02/22/2007 Encounters Date Type Department Care Team Description 12/26/2024 8:30 AM EDT [facility] [address] Anibal Simental PA Abnormal TSH (Primary Dx); Encounter for screening mammogram for malignant neoplasm of breast; Immunization due; Elevated alkaline phosphatase level 12/08/2024 Telephone Internal Medicine - [address] [address] Chelo Mancia DO from Last 3 Months Immunizations Immunization Administration Dates Next Due Influenza trivalent, 0.5mL, preservative free (Fluarix; FluLaval; Fluzone) ages 6mo and older (Afluria) 3 years and older 01/15/2017,01/16/2016,10/28/2010 Influenza trivalent, MDCK, 0 .5mL, preservative free (Flucelvax) 6mo and older 12/26/2024 Kamicat SARS-CoV-2 COVID-19, mRNA, LNP-S, preservative free 02/11/2021,07/19/2020,06/27/2020 Pneumococcal polysaccharide 23 valent (Pneumovax 23) 2yo and older 01/19/2014 Tdap Tetanus diptheria acell ular pertussis (Boostrix; Adacel) 7yo and older 12/26/2024,02/19/2011 Surgical History Surgery Date Site/Laterality Comments OTHER SURGICAL HISTORY PROCEDURE: ---- OTHER ----; COMMENT: 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 Pathology suggestive of mild-moderate active colitis of the distal colon/rectum. ? Crohns Disease. ABDOMINAL SURGERY 05/16/2015 PROCEDURE: [place] UNLISTED PROCEDURE ABDOMEN PERITONEUM & OMENTUM; COMMENT: RSO and lysis of adhesions GASTRIC BYPASS 10/10/2018 PROCEDURE: [place] GASTRIC RSTCV W/BYP W/SM INT RCNSTJ LIMIT ABSRPJ; COMMENT: sleeve CHOLECYSTECTOMY PROCEDURE: PA CHOLECYSTECTOMY Medical History Medical History Date Comments Asthma DX:Asthma Anxiety DX:Anxiety Depression DX:Depression WAYNE (obstructive sleep apnea) 01/24/2015 DX :WAYNE (obstructive sleep apnea) Crohn's colitis ([facility] V24 , [facility] V28) 04/29/2016 DX:Crohn's colitis (HCC) Morbid obesity with BMI of 4 0.0-44.9, adult ([facility] V24, [facility] V28) 03/20/2013 DX:Morbid obesity wit h BMI of 40.0-44.9, adult ([facility]) Dysthymic disorder 08/29/2014 DX:Dysthymic disorder Eating disorder [...] Date Smoking Tobacco: Never Smokeless Tobacco: Never Tobacco Cessation:Counseling Given: Not Answered Alcohol Use Standard Drinks/Week Comments Not Currently 0 (1 standard drink = 0.6 oz pur e alcohol) Housing Instability Answer Date Recorde d Are you worried that in the next 2 months you may not have stable housing? No 12/26/2024 Food Access & Nutrition Answer Date Rec orded Do you have access to a vari ety of food including fruits and vegetables? Yes 12/26/2024 Access to Healthcare Answer Date Record ed Within the last 3 months, lety dorsey many times did you visit the emergency department for your medical care? 0 12/26/2024 Health Literacy Answer Date Recorded How often do you need to hav e someone help you when you read instructions, pamphlets, or other written material from your doctor or pharmacy? Never 12/26/2024 Caregiver: How often do you need to have someone help you when you read instructions, pamphlets, or other written material from your doctor or pharmacy? Not on file 12/26/2024 Financial Risk Answer Date Recorded How hard is it for you to pa y for the very basics like food, housing, medical care, and air conditioning / heating? Not very hard 12/26/2024 Transportation Answer Date Recorded Has the lack of transportati on kept you from meetings, work, or from getting things needed for daily living? No Has the lack of transportati on kept you from medical appointments or from getting medications? No 12/26/2024 Social Isolation Answer Date Recorded How often do you feel lonely or isolated from th ose around you? Rarely 12/26/2024 Food Risk Answer Date Recorded Within the past 12 months we worried whether our food would run out before we got money to buy more. Never true 12/26/2024 Within the past 12 months th e food we bought just didn't last and we didn't have money to get more. Never true 12/26/2024 Dependent Care Answer Date Recorded Do you need help finding or paying for care for your loved ones. For example, child care center assistant director or elderly care for an older adult? Patient declined 12/26/2024 Employment and Income Answer Date Recor ded During the last four weeks, have you been actively looking for work? Patient declined 12/26/2024 Living Situation Answer Date Recorded What is your living situation? Unrecognized valu e 12/26/2024 Comments No Sex and Gender Information Value Date Recorded Sex Assigned at Not on file Legal Sex Female 2:51 PM EST Gender Identity Not on file Sexual Orientation Not on file Obstetrics History Last Filed Vital Signs Vital Sign Reading Time Taken Comments Blood Pressure 120/78 12/26/2024 8:38 AM EDT Pulse 68 12/26/2024 8:38 AM EDT Temperature - - Respiratory Rate - - Oxygen Saturation - - Inhaled Oxygen Concentration - - Weight 113 kg (249 lb) 12/26/2024 8:38 AM EDT Height 170.2 cm (5' 7 ) 10/09/2022 9:11 AM EDT Body Mass Index 39 10/09/2022 9:11 AM EDT Plan of Treatment Upcoming Encounters Date Type Department Care Team (Late st Contact Info) Description 06/26/2025 9:00 AM EDT Office Visit Internal Medicine - [facility] [address] [place] [address] Anibal Simental PA [address] [place] [address] Health Maintenance Due Date Last Done Comments Breast Cancer Screening 1983 Hepatitis B Vaccines (1 of 3 - 19+ 3-dose series) 2002 Cervical Cancer Screening: HPV 01/29/2004 HPV Vaccines (1 - Risk 3-dose SCDM series) 2010 Pneumococcal Vaccine: Pediatrics (0 to 5 Years) and At-Risk Patients (6 to 49 Years) (2 of 2 - PCV) 01/19/2015 01/19/2014 HIV Screening 03/14/2022 Hepatitis C Screening 03/14/2022 COVID-19 Vaccine ( season) 2024 02/11/2021, 07/19/2020, 06/27/2020 Social Influencers of Health Screening 12/26/2025 12/26/2024 Cholesterol Screening (Lipid Panel) 12/26/2029 12/26/2024, 10/04/2017 DTaP,Tdap,and Td Vaccines (3 - Td or Tdap) 12/26/2034 12/26/2024, 02/19/2011 RSV Immunization Adult Patients (1 - 1-dose 75+ series) 2058 Depression Screening Completed 12/26/2024 Influenza Vaccine Completed 12/26/2024, , 01/16/2016, Additional history exists HIB Vaccines Aged Out No longer eligi [...] 20 months Aged Out No longer eligible based on patient's age to complete this topic Varicella Vaccines Aged Out No longer eligible based on patient's age to complete this topic Procedures Procedure Name Priority Date/Time Associated Diagnosis Comments THYROID STIMULATING HORMONE WITH REFLEX TO FREE T4 AND FREE T3 Routine 12/26/2024 9:04 AM EDT Abnormal TSH LIPID PANEL WITH REFLEX TO DIRECT LDL Routine 12/26/2024 9:04 AM EDT Abnormal TSH COMPREHENSIVE METABOLIC PANEL Routine 12/26/2024 9:04 AM EDT Abnormal TSH THYROGLOBULIN ANTIBODY Routine 9:04 AM EDT Abnormal TSH from Last 3 Months Results * Thyroid stimulating hormone with reflex to free t4 and free t3 (12/26/2024 9:04 AM EDT) TSH 0.47 0.40 - 4.00 mcIU/mL LAB CHEMISTRY METHOD 12/26/2024 2:00 PM EDT [facility] Blood Venous blood specimen / Unknown Venipuncture / Unknown 12/26/2024 9:04 AM EDT 12/26/2024 9:04 AM EDT Anibal GREENE LAB BLOOD ORDERABLES Fi nal Result [facility] [address] [place] [address], * Lipid panel with reflex to direct LDL (12/26/2024 9:04 AM EDT) Cholesterol 171 0 - 200 mg/dL LAB CHEMISTRY METHOD 12/26/2024 12:39 PM EDT [facility] Triglycerides 52 0 - 150 mg/dL LAB CHEMISTRY METHOD 12/26/2024 12:39 PM EDT [facility] HDL 86 >=40 mg/dL LAB CHEMISTRY METHOD 12/26/2024 12:39 PM EDT [facility] LDL Calculated 75 0 - 100 mg/dL LAB CHEMISTRY METHOD 12/26/2024 12:39 PM EDT [facility] Comment:Estimated LDL Calcul ated using equation: Total cholesterol - HDL cholesterol - (Triglycerides/5) VLDL Cholesterol Bird 10.4 mg/dL LAB CHEMISTRY METHOD 12/26/2024 12:39 PM EDT [facility] Non HDL Chol. (LDL+VLDL) 85 <145 mg/dL LAB CHEMISTRY METHOD 12/26/2024 12:39 PM EDT [facility] Chol/HDL Ratio 2.0 0.0 - 4.4 LAB CHEMISTRY METHOD 12/26/2024 12:39 PM EDT [facility] Blood Venous blood specimen / Unknown Venipuncture / Unknown 12/26/2024 9:04 AM EDT 12/26/2024 9:04 AM EDT Anibal GREENE LAB BLOOD ORDERABLES Fi nal Result Performing Organization Address [facility]/ZIP Co de Phone Number [facility] [address] [place] [address], [place] [phone] * Thyroglobulin antibody (12/26/2024 9:04 AM EDT) Antithyroglobulin Ab <15.0 <=60.0 I Unit/mL LAB CHEMISTRY METHOD 12/26/2024 1:24 PM EDT [facility] Blood Venous blood specimen / Unknown Venipuncture / Unknown 12/26/2024 9:04 AM EDT 12/26/2024 9:04 AM EDT Anibal GREENE LAB BLOOD ORDERABLES Fi nal Result Performing Organization Address City/[facility]/ZIP Co de Phone Number [facility] [address] [place] [address], [place] [phone] * (ABNORMAL) Comprehensive metabolic panel (12/26/2024 9:04 AM EDT) Sodium 138 133 - 145 mmol/L LAB CHEMISTRY METHOD 12/26/2024 12:35 PM [facility] Potassium 4.3 3.5 - 5.5 mmol/L LAB CHEMISTRY METHOD 12/26/2024 12:35 PM [facility] Chloride 103 96 - 110 mmol/L LAB CHEMISTRY METHOD 12/26/2024 12:35 PM [facility] CO2 28 21 - 32 mmol/L LAB CHEMISTRY METHOD 12/26/2024 12:35 PM [facility] Anion Gap 7 3 - 11 LAB CHEMISTRY METHOD 12/26/2024 12:35 PM [facility] Glucose 85 70 - 100 mg/dL LAB CHEMISTRY METHOD 12/26/2024 12:35 PM [facility] BUN 10 5 - 25 mg/dL LAB CHEMISTRY METHOD 12/26/2024 12:35 PM [facility] Creatinine 0.65 0.50 - 1.10 mg/dL LAB CHEMISTRY METHOD 12/26/2024 12:35 PM [facility] eGFR 114 >=60 mL/min/1. 73m2 LAB CHEMISTRY METHOD 12/26/2024 12:35 PM [facility] Comment:Calculation based on the Chronic Kidney Disease Epidemiology Collaboration (CKD-EPI) equation refit without adjustment for race. BUN/Creatinine Ratio 15.4 LAB CHEMISTRY METHOD 12/26/2024 12:35 PM [facility] Calcium 8.9 8.5 - 10.5 mg/dL LAB CHEMISTRY METHOD 12/26/2024 12:35 PM [facility] AST (SGOT) 15 10 - 42 unit/L LAB CHEMISTRY METHOD 12/26/2024 12:35 PM [facility] ALT (SGPT) 18 10 - 60 unit/L LAB CHEMISTRY METHOD 12/26/2024 12:35 PM EDT [facility] Alkaline Phosphatase 170(H) 42 - 121 unit/L LAB CHEMISTRY METHOD 12/26/2024 12:35 PM EDT [facility] Total Protein 7.8 6.0 - 8.0 g/dL LAB CHEMISTRY METHOD 12/26/2024 12:35 PM EDT [facility] Albumin 3.7 3.2 - 5.0 g/dL LAB CHEMISTRY METHOD 12/26/2024 12:35 PM EDT [facility] Total Bilirubin 0.3 0.0 - 1.4 mg/dL LAB CHEMISTRY METHOD 12/26/2024 12:35 PM EDT [facility] Blood Venous blood specimen / Unknown Venipuncture / Unknown 12/26/2024 9:04 AM EDT 12/26/2024 9:04 AM EDT Anibal GREENE LAB BLOOD ORDERABLES Fi nal Result [facility] [address] [place] [address], from Last 3 Months Insurance [facility] Care Teams Electrical And Radio Aircraft Mechanic Relationship Specialty Start Date End Date Chelo Mancia DO [address] [place] [address] PCP - General Internal Medicine 11/02/24
--- OUTSIDE RECORDS SUMMARY | 2025-01-02 06:51 | XMS_ITS | Clinical Summary ---
Author Organization [facility] Address [address] [place] [id number] Phone Care Team Providers Care Aircraft Structural Repair Mechanic Name Role Phone Chelo Mancia DO Primary Care Provider [phone] Medications albuterol 90 mcg/actuation inhalerIndication s:Mild intermittent asthmatic bronchitis with acute exacerbation Inhale 2 puffs into the lungs every 6 (six) hours as needed for wheezing. 8.5 g 02/27/2024 Active Active Problems No known active problems Social History Tobacco Use Types Packs/Day Years Used Date Smoking Tobacco: Never Assessed Education Answer Date Recorded Are you interested in more education? Not on lily e 06/22/2024 Are you concerned about learning? Not on file 06/22/2024 No 06/22/2024 No 06/22/2024 Digital Access Answer Date Recorded No 06/22/2024 No 06/22/2024 Reliable internet access at home? Not on file 06/22/2024 Device with a working camera? Not on file Comments Unknown Sex and Gender Information Value Date Recorded Sex Assigned at Female 02/27/2024 6:11 PM EST Legal Sex Female 6:07 PM EST Gender Identity Female 02/27/2024 6:11 PM EST Sexual Orientation Straight 02/27/2024 6: 11 PM EST Plan of Treatment Health Maintenance Due Date Last Done Comments DEPRESSION SCREENING 1995 SMOKING Hx and SMOKELESS TOB ACCO SCREENING 01/29/1996 HEPATITIS C SCREENING 2001 HIV ONE-TIME SCREENING (18-6 5 YEARS) 2001 PNEUMOCOCCAL VACCINES (0-49 years) (1 of 2 - PCV) 2002 PAP SMEAR 01/29/2004 Adult Td,Tdap Booster 02/19/2021 02/19/2011 MAMMOGRAM 2023 INFLUENZA VACCINE (#1) 2024 COVID-19 VACCINE (1 - 2023-2 5 season) 2024 HEPATITIS A VACCINES Aged Out No long er eligible based on patient's age to complete this topic HIB VACCINES Aged Out No longer eligi ble based on patient's age to complete this topic MENINGOCOCCAL VACCINES (ACWY) Aged Out No longer eligible based on patient's age to complete this topic MENINGOCOCCAL VACCINES (B) Aged Out N o longer eligible based on patient's age to complete this topic Medical Devices [place] [id number] [facility] COMPLETE O [facility] COM[facility]TE HMO [facility] COMPLETE O [facility] COMPLETE HMO [employer] DENTAL Care Teams Aircraft Structural Repair Mechanic Relationship Specialty Start Date End Date Joanna ManciaDO [address] [place] [address] PCP - General 02/27/24 Additional Source Comments The information contained in this document represents components of the legal health record. It is not the complete legal health record.[facility]
[2025-01-25 08:12] LABS: UPreg QC Valid YES
[2025-01-25] MEDS: Lactated Ringers 1,000 ML 100 ML IVCONT (08:17)
[2025-01-25 08:30] VITALS: BP 120/70; PULSE 70; RESP 18; TEMP 36.4; O2SAT 99; BMI 38.5
--- NOTE | 2025-01-25 08:33 | HO.ANESPROP2 ---
Documented by User: Shantell Atkins NP 01/23/25 09:14 HPI - Anesthesia Eval Consult details Narrative: 39 yr old female for colonoscopy Crohn's: on Humira PMFSH Active Problems Active Problems: All Active Problems Back pain (Acute) Crohn's disease (Acute) Past Medical History Medical History Crohn disease Family History Family History Father No problems noted. Mother Diabetes HTN (hypertension) Surgical History Surgical History Hx of bariatric surgery Hx of cholecystectomy Hx of colonoscopy Social History Social History Household Members: None Are you a primary personal carer to a significant other at home: No Do you presently have visiting nurse or other home services: No Alcohol intake: current Alcohol intake frequency: holidays/special occasions only Alcohol type: wine Patient Tobacco Use Status: Never used Tobacco Substance Use Frequency: Daily Have you been hit, kicked, punched, or otherwise hurt by someone within the past year? If so, by whom?: No Are you DNR?: No Advance Directives: No Advance Directives Information Provided: Yes Patient : No FDLMP: 2 weeks ago Poor oral hygiene: No Meds Allergies Allergy/AdvReac Type Severity Reaction Status Date / Time Sulfa (Sulfonamide Allergy Unknown hives, Verified 01/25/25 08:02 Antibiotics) itchy Home Medications ?Medication ?Instructions ?Recorded ?Confirmed ?Last Taken ?Type albuterol sulfate 90 mcg/actuation inhalation 04/15/20 07/23/20 Unknown History aerosol inhaler venlafaxine 150 mg 150 mg PO DAILY 04/15/20 01/23/25 Unknown History capsule,extended release 24 hr venlafaxine 75 mg capsule,extended 75 mg PO DAILY 04/15/20 01/23/25 Unknown History release 24 hr levonorgestrel (Mirena) intrauterine 06/19/20 07/23/20 Unknown History naltrexone 1.5 mg capsule (Naltrex) 3 mg PO DAILY 10/16/24 01/23/25 Unknown History adalimumab-adaz 80 mg/0.8 mL mg subcut 01/25/25 01/25/25 Unknown History subcutaneous pen injector (Hyrimoz(CF) Pen) Documented by User: Shannan De Luna DO 01/25/25 08:34 [facility] Past Medical History Medical History Crohn disease Family History Family History Father No problems noted. Mother Diabetes HTN (hypertension) Family history of problems with anesthesia: No Surgical History Surgical History Hx of bariatric surgery Hx of cholecystectomy Hx of colonoscopy History of Problems with Anesthesia: No Social History Social History Household Members: None Are you a primary personal carer to a significant other at home: No Do you presently have visiting nurse or other home services: No Alcohol intake: current Alcohol intake frequency: holidays/special occasions only Alcohol type: wine Patient Tobacco Use Status: Never used Tobacco Substance Use Frequency: Daily Have you been hit, kicked, punched, or otherwise hurt by someone within the past year? If so, by whom?: No Are you DNR?: No Advance Directives: No Advance Directives Information Provided: Yes Patient : No FDLMP: 2 weeks ago Poor oral hygiene: No Meds Allergies Allergy/AdvReac Type Severity Reaction Status Date / Time Sulfa (Sulfonamide Allergy Unknown hives, Verified 01/25/25 08:02 Antibiotics) itchy Home Medications ?Medication ?Instructions ?Recorded ?Confirmed ?Last Taken ?Type albuterol sulfate 90 mcg/actuation inhalation 04/15/20 07/23/20 Unknown History aerosol inhaler venlafaxine 150 mg 150 mg PO DAILY 04/15/20 01/23/25 Unknown History capsule,extended release 24 hr venlafaxine 75 mg capsule,extended 75 mg PO DAILY 04/15/20 01/23/25 Unknown History release 24 hr levonorgestrel (Mirena) intrauterine 06/19/20 07/23/20 Unknown History naltrexone 1.5 mg capsule (Naltrex) 3 mg PO DAILY 10/16/24 01/23/25 Unknown History adalimumab-adaz 80 mg/0.8 mL mg subcut 01/25/25 01/25/25 Unknown History subcutaneous pen injector (Hyrimoz(CF) Pen) Exam Exam Date and Time: 01/25/25 0830 Height,Weight and Vital Signs: Height 5 ft 7 in Weight 111.584 kg Vital Signs Temperature 97.6 F 01/25/25 08:30 Pulse Rate 70 01/25/25 08:30 Respiratory Rate 18 01/25/25 08:30 Blood Pressure 120/70 01/25/25 08:30 Pulse Oximetry 99 01/25/25 08:30 Oxygen Delivery Method Room Air 01/25/25 08:30 Temperature 97.6 F 01/25/25 08:30 Pulse Rate 70 01/25/25 08:30 Respiratory Rate 18 01/25/25 08:30 Blood Pressure 120/70 01/25/25 08:30 Pulse Oximetry 99 01/25/25 08:30 Oxygen Delivery Method Room Air 01/25/25 08:30 Airway Mallampati Class: II TM Dist: >3cm Neck ROM: Full Loose/Missing/Broken Teeth: No (patient denies any loose or broken teeth) Heart: S1S2 Lungs: CTAB Assessment and Plan Assessment Anesthesia Assessment: Anesthesia Plan Discussed and Chart Reviewed Final Anesthetic Review Family History of Problems with Anesthesia: No History of Problems with Anesthesia: No NPO: Yes ASA Class: II Final Preanesthetic Review: No Changes in Pt Med Stat, Meds/Allgs Chart Reviewed, Consent Obtained/Reviewed and Anes Risks/Benef Reviewed Patient Risk: Low Procedure Risk: Low Anesthetic Plan Anesthetic Plan: MAC: and Agree w/ Assess. and Plan Disposition: Standard PACU
--- NOTE | 2025-01-25 08:51 | MHC.SHP ---
Pre-Procedural Eval Section A - 24 Hr Update-Section A only Date of Service: 01/25/25 Section B - Complete if H&P > 30 days Chief Complaint: screening Relevant Family History (Specify if Yes): No Relevant Social History: Other (specify) (thc) Present Medications: see Short Stay Collaborative assessment Medical History: Significant History (crohns, a1at) History of Previous Operations: Relevant previous surgery/procedure and date(s) (Hx of cholecystectomy Hx of colonoscopy, sleeve gastrectomy) Allergies: Allergies Allergy/AdvReac Type Severity Reaction Status Date / Time Sulfa (Sulfonamide Allergy Unknown hives, Verified 01/25/25 08:02 Antibiotics) itchy Review of Systems Sugical H&P ROS: Negative: Constitution, Cardiovascular, Respiratory, Neurological, Psychiatric, Hem-Onc, Allergic/Immunologic, Gastrointestinal, Genitourinary, Musculoskeletal, Integumentary, Endocrine and Eyes/Ears/Nose/Throat Exam Surgical H&P Exam: Normal: HEENT, Normal: Heart, Normal: Lungs, Normal: Extremities, Normal: Abdomen, Normal: Skin and Normal: Neurological Plan Diagnosis/Plan: Unchanged I have reviewed the history and physical and performed a pertinent physical examination on my patient. No changes have occurred unless specified. Time Spent With Patient Time: Total time managing care of this patient today ____ minutes.
--- NOTE | 2025-01-25 09:24 | HO.OPN-COLON ---
Colonoscopy Operative Note Operative Note Date of Service: 01/25/25 Narrative: Operative Information Procedure Description: Colonoscopy Indication: hx of crohns Anesthesia: MAC COLONOSCOPY Instrument: Olympus variable stiffness pediatric scope 190L Colonoscopy Monitoring: Vital signs and clinical assessment, continuous EKG monitoring, Pulse oximetry, Carbon Dioxide monitoring and blood pressure monitoring were done throughout the procedure. Colon withdrawal time was 15 minutes. Procedure: The patient was placed in the left lateral decubitis position and pre-procedure medications were administered. After a digital rectal examination of the ano-rectum, the video colonoscope was inserted into the rectum and advanced through the colon to the cecum/TI. The colonoscope was slowly withdrawn in a retrograde panoramic fashion and the colon mucosa was carefully examined including a retroflexed view of the rectum. Findings and interventions are described below. Procedure Difficulty: easy Findings: Terminal Ileum-, bx taken--normal bx taken from right and left colon Cecum:normal Ascending Colon: normal Transverse Colon -normal Descending Colon:normal Sigmoid Colon: normal Rectum: Retroflexion with small internal hemorrhoids seen, grade I Anorectum - normal Intervention: cold forceps Colon preparation: [place] Bowel Preparation Scale Right colon; 1-2- Transverse colon: 1-2 Left colon; 1-2 (0 = Unprepared colon segment with mucosa not seen due to solid stool that cannot be cleared. 1 = Portion of mucosa of the colon segment seen, but other areas of the colon segment not well seen due to staining, residual stool and/or opaque liquid. 2 = Minor amount of residual staining, small fragments of stool and/or opaque liquid, but mucosa of colon segment seen well. 3 = Entire mucosa of colon segment seen well with no residual staining, small fragments of stool or opaque liquid) Impression and Post Procedure Diagnosis: internal hemorrhoids Plan: High fiber diet leaflet Avoid straining at stool, epsom salts and sitz bath, anusol supps or cream Repeat Colonoscopy in 1 year or earlier if clinically indicated --next time reinforce prep instructions Above findings were reviewed with the patient and relevant handouts were provided if indicated.
[2025-01-25 09:31] VITALS: BP 100/55; PULSE 71; RESP 16; TEMP 36.3; O2SAT 98
[2025-01-25 09:45] VITALS: BP 114/76; PULSE 85; RESP 16; TEMP 36.3; O2SAT 98
[2025-01-30 23:28] LABS: Lactoferrin, Fecal, Quant. <6.25 mcg/mL (<7.25)
== END 2025-01-25 10:02 | disposition home or self-care (01) ==
PROVIDERS: Nurse Practitioner; Visit Provider Internal Medicine Gastroenterology
PROC: 0DJD8ZZ Inspection of Lower Intestinal Tract, Via Natural or Artificial Opening Endoscopic (ICD-10-PCS; CPT 45378; principal; 2025-01-25 09:50)
DX: Z12.11 Encounter for screening for malignant neoplasm of colon (principal); Z87.19 Personal history of other diseases of the digestive system; K64.0 First degree hemorrhoids
CPT/HCPCS: 45380; 81025; 83631; 88305; J2003; J2704

== ENCOUNTER → 2025-01-25 07:56 | Outpatient (BNV) | payer OTHER, SELFPAY | PROVIDERS: Visit Provider Internal Medicine Gastroenterology | DX: Z12.11 Encounter for screening for malignant neoplasm of colon (principal); K64.0 First degree hemorrhoids | CPT/HCPCS: 45380 ==

== ENCOUNTER 2025-03-22 08:55 | Outpatient (AMB) | payer OTHER, SELFPAY ==
[2025-03-22 08:58] VITALS: BP 118/72; PULSE 81; O2SAT 98; BMI 39.2
--- NOTE | 2025-03-22 08:58 | A.OFFVIS_ITS ---
Vital Signs 03/22/25 08:58 Height 5 ft 7 in Weight 250 lb 7.122 oz BMI 39.2 BP 118/72 Blood Pressure Location Lt brachial Position Sitting Pulse 81 Pulse Source Pulse Oximeter Pulse Oximetry (%) 98 Oxygen Delivery Method Room Air Intake Visit Reasons: Abnormal TSH Intake Note: New patient externally referred by PCP for Abnormal TSH. 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: No Accompanied by: Self / Same As Patient Allergies Sulfa (Sulfonamide Antibiotics) Allergy (Unknown, Verified 03/22/25 09:04) hives, itchy Medication List - Last Reconciled 03/22/25 by Eloy Pelaez MD adalimumab-adaz (Hyrimoz(CF) Pen) 80 mg (0.8 mL) subcut Q2W albuterol sulfate 90 mcg/actuation inhalation azathioprine 50 mg PO DAILY levonorgestrel (Mirena) intrauterine naltrexone (Naltrex) 3 mg PO DAILY venlafaxine ER 150 mg PO DAILY venlafaxine ER 75 mg PO DAILY HPI Comments Details: History of Present Illness The patient is a 40 year old female referred for evaluation of her thyroid levels. An initial TSH level was slightly low at 0.37, and a subsequent repeat level was normal at 0.44. She also had positive thyroid antibody tests. Associated symptoms include occasional palpitations and hand tremors, which her sister first noticed about three months ago. She also reports intermittent hoarseness and a burning sensation in her throat. She denies any significant weight loss. The patient experiences brain fog and irritability but does not believe they are related to her thyroid. The patient has a past medical history of Crohn's disease, for which she is treated with azathioprine and a biologic agent. She has no children. She denies any history of radiation to the head or neck and denies use of kelp or biotin supplements. Her younger sister has a history of hypothyroidism with an elevated TSH, diagnosed sometime this year. She is unsure of any family history of thyroid cancer. Medication History - Azathioprine (Imuran) for Crohn's disease. - A biologic agent for Crohn's disease. Medications - Azathioprine (Imuran) for Crohn's disease. - Biologic therapy for Crohn's disease. Exercise Diet History The patient denies taking any kelp or biotin supplements. Results - TSH: An initial level was 0.37, which is slightly low, and a repeat test was 0.44, which is in the normal range. - Thyroid antibodies (anti-peroxidase): Positive. [facility] Medical History (Updated 03/22/25 @ 09:05 by Eloy Pelaez MD) Abnormal thyroid blood test Crohn disease Surgical History Hx of bariatric surgery Hx of cholecystectomy Hx of colonoscopy Family History Father No problems noted. Mother Diabetes HTN (hypertension) Social History Household Members: None Are you a primary healthcare consulting manager to a significant other at home: No Do you presently have visiting nurse or other home services: No Alcohol intake: current Alcohol intake frequency: holidays/special occasions only Alcohol type: wine Patient Tobacco Use Status: Never used Tobacco Review of Systems Narrative Review of Systems - Constitutional: Denies significant weight loss. - Cardiovascular: Reports occasional palpitations. - HEENT: Reports intermittent hoarseness and a burning sensation in the throat. - Neck: Denies difficulty swallowing or a choking sensation. - Gastrointestinal: Reports frequent bowel movements secondary to known Crohn's disease. - Neurological: Reports hand tremors. - Psychiatric: Reports irritability and brain fog. Physical Exam Exam Exam: Physical Exam - Neck: Supple. - Thyroid: Non-enlarged and without palpable nodules or goiter. - Extremities: A slight, fine tremor was observed in the outstretched hands. Absence of Cushingoid features. Absence of acromegalic features. Neck exam reveals nl size thyroid about 15 gms. No thyroid nodules palpable. Heart S1 S2, Reg R/R. No M/R G. Skin exam reveals absence of vitiligo or acanthosis nigricans. Visual exam of foot performed. No ulcerations or open lesions. No inter digit maceration or fissuring. No onychomycosis, no callouses. Sensation intact to monofilament exam. Vibratory sensation is normal with 128 Hz tuning fork. Vital Signs: Last Vital Signs Pulse 81 03/22/25 08:58 BP 118/72 03/22/25 08:58 Pulse Ox 98 03/22/25 08:58 Oxygen Delivery Method Room Air 03/22/25 08:58 BMI result Body Mass Index 39.2 HEENT reveals absence of lid lag , stare or proptosis or eyebrow loss. Thyroid gland measure 15 gms . No nodules or tenderness palpated. There is no cervical adenopathy palpated. Lungs CTA. Heart S1, S2 Reg R/R -M/R/G. Abdominal exam benign. Skin exam reveals absence of dryness or thyroid dermopathy or vitiligo. Nail exam reveals absence of thyroid acropachy or oncholysis. Neurologic exam reveals 2+ reflexes . Muscle Strength is 5/5 proximally. There are no tremors in upper extremities. Assessment & Plan Assessment & Plan (1) Abnormal thyroid blood test: Code(s): R79.89 - Other specified abnormal findings of blood chemistry Category: Medical Plan: This is a 40-year-old black female found to have a slightly suppressed TSH which on repeat was normal and positive anti-peroxidase antibody which most likely represents euthyroid Pooja's disease. At this point, there is no need for any further endocrine workup or follow up. Repeat thyroid function studies can be done with the patient's primary care provider and if TSH declines to <0.1 or becomes elevated, patient returned back to endocrinology for discussion of treatment options Plan Assessment and Plan 1. Pooja's Thyroiditis with Subclinical Hyperthyroidism The patient is a 40-year-old female with a recent history of a mildly low TSH which has since normalized. 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 Her symptoms of occasional palpitations and tremors are mild and may be related. The physical exam is reassuring, showing no goiter. Given that her TSH is not suppressed below 0.1, the risks of bone loss or atrial fibrillation are low. The condition is not serious and does not require immediate medical intervention. Reassurance was provided. No further laboratory testing is indicated at this time. It is recommended she follow up with her primary care provider for annual TSH monitoring. She should seek re-evaluation sooner if she develops worsening symptoms such as significant weight loss, palpitations, or increased tremors. She was also advised to have her TSH checked if planning or upon becoming . A summary of this consultation will be sent to her PCP. The patient had an opportunity to ask questions regarding treatment plan. The patient expressed understanding and agreement with the above treatment plan. Patient was informed and verbally consented to the use of an ambient scribe for clinic note documentation during this visit. Discussion Notes I explained the function of the thyroid and pituitary glands and the inverse relationship between TSH and thyroid hormones T4 and T3. I educated the patient that her combination of a transiently low TSH and positive antibodies indicates Pooja's disease, an autoimmune condition that runs in families and is likely the same underlying disease her sister has, though her sister's presents as hypothyroidism. I informed her that this is nothing serious to worry about and that her thyroid feels normal on examination, with no evidence of goiter. I explained that her phase of mild hyperthyroidism is termed Hashitoxicosis and that at her current TSH level, there is minimal risk of complications like bone loss or atrial fibrillation. We discussed that no treatment is needed now, but she should have her TSH checked annually by her primary care provider. I clarified that terms like Graves' disease are named after physicians and do n ot imply a grim prognosis. I provided her with websites for further education on thyroid health. I advised her to follow up sooner if she experiences worsening symptoms such as significant weight loss or increased palpitations and tremors. I also emphasized the importance of monitoring TSH levels during any future . Patient Instructions - Your current thyroid condition is called Pooja's disease, which is very common. It is not serious and does not require any medication at this time. - We do not need to do any more lab tests right now. - Your primary care provider should check your thyroid stimulating hormone (TSH) level with a blood test about once a year. - Contact your doctor if you start to lose a lot of weight without trying, feel your heart racing more often, or notice your hands shaking more. - If you plan on becoming , or find out you are , you should have your TSH level checked. - You do not need to come back to see the invasive cardiovascular technologist unless your primary provider recommends it. - You can learn more about your condition at websites like [employer] and hormone.org. Coding Level of Care Code New Pt Level 4 (57074) Add On Problem Visit Only Diagnoses Abnormal thyroid blood test R79.89
--- OUTSIDE RECORDS SUMMARY | 2025-03-22 09:41 | XMS_ITS | Clinical Summary ---
Author Organization [facility] [address] [facility] Building Address [address] [place] [address] Phone Care Team Providers Care Printing Worker Supervisor Name Role Phone Chelo Mancia DO Primary Care Provider Allergies Active Allergy Reactions Criticality Noted Date [...] gastroenterology. Had a liver biopsy. Crohn's colitis 04/29/2016 Generalized anxiety disorder 04/08/2016 WAYNE (obstructive sleep apnea) 01/24/2015 Eating disorder 09/19/2014 Dysthymic disorder 08/29/2014 Asthma 02/22/2007 Encounters Date Type Department Care Team Description 12/26/2024 8:30 AM EDT [facility] [address] [place] [address] Anibal Simental PA Abnormal TSH (Primary Dx); Encounter for screening mammogram for malignant neoplasm of breast; Immunization due; Elevated alkaline phosphatase level from Last 3 Months Immunizations Immunization Administration Dates Next Due Influenza trivalent, 0.5mL, preservative free (Fluarix; FluLaval; Fluzone) ages 6mo and older (Afluria) 3 years and older 01/15/2017,01/16/2016,10/28/2010 Influenza trivalent, MDCK, 0 .5mL, preservative free (Flucelvax) 6mo and older 12/26/2024 CME SARS-CoV-2 COVID-19, mRNA, LNP-S, preservative free 02/11/2021,07/19/2020,06/27/2020 Pneumococcal polysaccharide 23 valent (Pneumovax 23) 2yo and older 01/19/2014 Tdap Tetanus diptheria acell ular pertussis (Boostrix; Adacel) 7yo and older 12/26/2024,02/19/2011 Surgical History Surgery Date Site/Laterality Comments OTHER SURGICAL HISTORY PROCEDURE: ---- OTHER ----; COMMENT: 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 for DUB when she was younger COLONOSCOPY W/ BIOPSIES 11/30/14 [facility] PROCEDURE: PA COLONOSCOPY W/BIOPSY SINGLE/MULTIPLE; COMMENT: Patchy [...] DX :WAYNE (obstructive sleep apnea) Crohn's colitis ([facility] V24 , [facility] V28) 04/29/2016 DX:Crohn's colitis (HCC) Morbid obesity with BMI of 4 0.0-44.9, adult ([facility] V24, [facility] V28) 03/20/2013 DX:Morbid obesity wit h BMI of 40.0-44.9, adult ([facility]) Dysthymic disorder 08/29/2014 DX:Dysthymic disorder Eating disorder [...] Record ed Within the last 3 months, ho w many times did you visit the emergency [...] care for your loved ones. For example, exceptional children teacher or elderly care for an older adult? [...] Care Team (Late st Contact Info) Description 04/17/2025 9:30 AM EST Office Visit [facility] [address] [place] [address] Rhina Garrett CNM [address] [place] [address] 06/26/2025 9:00 AM EDT Office Visit Internal Medicine - [facility] [address] [place] [address] Anibal Simental, JC [address] [place] [address] Health Maintenance Due Date Last Done Comments [...] Hepatitis C Screening 03/14/2022 COVID-19 Vaccine ( - season) 2024 02/11/2021, 07/19/2020, 06/27/2020 Social Influencers [...] Name Priority Date/Time Associated Diagnosis Comments THYROID PANEL WITH THYROID STIMULATING HORMONE Routine 01/10/2025 11:43 AM EDT THYROID STIMULATING HORMONE WITH REFLEX TO FREE T4 AND FREE T3 Routine 12/26/2024 9:04 AM EDT Abnormal TSH LIPID PANEL WITH REFLEX TO DIRECT LDL Routine 12/26/2024 9:04 AM EDT Abnormal TSH COMPREHENSIVE METABOLIC PANEL Routine 12/26/2024 9:04 AM EDT Abnormal TSH THYROGLOBULIN ANTIBODY Routine 9:04 AM EDT Abnormal TSH from Last 3 Months Results * Thyroid panel with thyroid stimulating hormone (01/10/2025 11:43 AM EDT) Blood Venous blood specimen / Unknown Historical Provider LAB BLOOD ORDERABLES Amarilis l Result * Thyroid stimulating hormone with reflex to free t4 and free t3 (12/26/2024 9:04 AM EDT) TSH 0.47 0.40 - 4.00 mcIU/mL LAB CHEMISTRY METHOD 12/26/2024 2:00 PM EDT [facility] Blood Venous blood specimen / Unknown Venipuncture / Unknown 12/26/2024 9:04 AM EDT 12/26/2024 9:04 AM EDT Anibal GREENE LAB BLOOD ORDERABLES Fi nal Result [facility] [address] [place] [address], [place] [phone] * Lipid panel with reflex to direct LDL (12/26/2024 9:04 AM EDT) Cholesterol 171 0 - 200 mg/dL LAB CHEMISTRY METHOD 12/26/2024 12:39 PM EDT [facility] Triglycerides 52 0 - 150 mg/dL LAB CHEMISTRY METHOD 12/26/2024 12:39 PM EDT [facility] HDL 86 >=40 mg/dL LAB CHEMISTRY METHOD 12/26/2024 12:39 PM EDT [facility] LDL Calculated 75 0 - 100 mg/dL LAB CHEMISTRY METHOD 12/26/2024 12:39 PM EDT [facility] Comment:Estimated LDL Calcul ated using equation: Total cholesterol - HDL cholesterol - (Triglycerides/5) VLDL Cholesterol Bird 10.4 mg/dL LAB CHEMISTRY METHOD 12/26/2024 12:39 PM EDT [facility] Non HDL Chol. (LDL+VLDL) 85 <145 mg/dL LAB CHEMISTRY METHOD 12/26/2024 12:39 PM EDT [facility] Chol/HDL Ratio 2.0 0.0 - 4.4 LAB CHEMISTRY METHOD 12/26/2024 12:39 PM EDT [facility] Blood Venous blood specimen / Unknown Venipuncture / Unknown 12/26/2024 9:04 AM EDT 12/26/2024 9:04 AM EDT us Anibal GREENE LAB BLOOD ORDERABLES Fi nal Result [facility] [address] [place] [address], * Thyroglobulin antibody (12/26/2024 9:04 AM EDT) Antithyroglobulin Ab <15.0 <=60.0 I Unit/mL LAB CHEMISTRY METHOD 12/26/2024 1:24 PM EDT [facility] Blood Venous blood specimen / Unknown Venipuncture / Unknown 12/26/2024 9:04 AM EDT 12/26/2024 9:04 AM EDT Anibal GREENE LAB BLOOD ORDERABLES Fi nal Result [facility] [address] [place] [address], * (ABNORMAL) Comprehensive metabolic panel (12/26/2024 9:04 AM EDT) Sodium 138 133 - 145 mmol/L LAB CHEMISTRY METHOD 12/26/2024 12:35 PM [facility] Potassium 4.3 3.5 - 5.5 mmol/L LAB CHEMISTRY METHOD 12/26/2024 12:35 PM [facility] Chloride 103 96 - 110 mmol/L LAB CHEMISTRY METHOD 12/26/2024 12:35 PM [facility] CO2 28 21 - 32 mmol/L LAB CHEMISTRY METHOD 12/26/2024 12:35 PM [facility] Anion Gap 7 3 - 11 LAB CHEMISTRY METHOD 12/26/2024 12:35 PM [facility] Glucose 85 70 - 100 mg/dL LAB CHEMISTRY METHOD 12/26/2024 12:35 PM [facility] BUN 10 5 - 25 mg/dL LAB CHEMISTRY METHOD 12/26/2024 12:35 PM [facility] Creatinine 0.65 0.50 - 1.10 mg/dL LAB CHEMISTRY METHOD 12/26/2024 12:35 PM [facility] eGFR 114 >=60 mL/min/1. 73m2 LAB CHEMISTRY METHOD 12/26/2024 12:35 PM [facility] Comment:Calculation based on the Chronic Kidney Disease Epidemiology Collaboration (CKD-EPI) equation refit without adjustment for race. BUN/Creatinine Ratio 15.4 LAB CHEMISTRY METHOD 12/26/2024 12:35 PM EDT [facility] Calcium 8.9 8.5 - 10.5 mg/dL LAB CHEMISTRY METHOD 12/26/2024 12:35 PM [facility] AST (SGOT) 15 10 - 42 unit/L LAB CHEMISTRY METHOD 12/26/2024 12:35 PM [facility] ALT (SGPT) 18 10 - 60 unit/L LAB CHEMISTRY METHOD 12/26/2024 12:35 PM T [facility] Alkaline Phosphatase 170(H) 42 - 121 unit/L LAB CHEMISTRY METHOD 12/26/2024 12:35 PM [facility] Total Protein 7.8 6.0 - 8.0 g/dL LAB CHEMISTRY METHOD 12/26/2024 12:35 PM [facility] Albumin 3.7 3.2 - 5.0 g/dL LAB CHEMISTRY METHOD 12/26/2024 12:35 PM [facility] Total Bilirubin 0.3 0.0 - 1.4 mg/dL LAB CHEMISTRY METHOD 12/26/2024 12:35 PM [facility] Blood Venous blood specimen / Unknown Venipuncture / Unknown 12/26/2024 9:04 AM EDT 12/26/2024 9:04 AM EDT Anibal GREENE LAB BLOOD ORDERABLES Fi nal Result [facility] [address] [place] [address], from Last 3 Months Insurance [facility] Care Teams Printing Worker Supervisor Relationship Specialty Start Date End Date Chelo Mancia DO [address] [facility] [place] [address] PCP - General Internal Medicine 11/02/24
--- OUTSIDE RECORDS SUMMARY | 2025-03-22 09:41 | XMS_ITS | Clinical Summary ---
Author Organization [facility] Address [address] [place] [address] Care Team Providers Care Health Policy Analyst Name Role Phone Pcp, No Primary Care [...] C Virus Screening 1983 COVID-19 Vaccine (#1) 1983 Quantiferon Gold TB 1993 HIV Screening 01/29/1996 DTaP/Tdap/Td Vaccines (1 - Tdap) 2002 Hepatitis B Vaccines (1 of 3 - 19+ 3-dose series) 01/04 Pneumococcal Vaccine: Pediat jj (0-5 Years) and At-Risk Patients (6 to 49 Years) (1 of 2 - PCV) 2002 Pap Smear (Ages 21-65) 01/29/2004 Mammogram 2023 Influenza Vaccine 11/03/2024 HPV Vaccines (No Doses Required) Completed Insurance [facility] Care Teams Health Policy Analyst Relationship Specialty Start Date End Date Pcp, No PCP - General General Medicine 04/05/19
--- OUTSIDE RECORDS SUMMARY | 2025-03-22 09:41 | XMS_ITS | Clinical Summary ---
Author Organization [facility] Address [address] [place] [phone] Phone Care Team Providers Care Director Medical Science Name Role Phone Chelo Mancia DO Primary Care Provider [phone] Medications albuterol 90 mcg/actuation inhalerIndication s:Mild intermittent [...] VACCINE (#1) 2024 COVID-19 VACCINE (1 - 2024-2 6 season) 2024 HEPATITIS A VACCINES Aged Out [...] Not [place] [id number] [facility] O [facility] COMPLE[facility] HMO [employer] Care Teams Director Medical Science Relationship Specialty Start Date End Date Joanna ManciaDO valeria [address] [place] [address] PCP - General 02/27/24 Additional Source Comments The information contained in this document represents components of the legal health record. It is not the complete legal health record.[facility]
== END 2025-03-22 09:41 | disposition home or self-care (01) ==
LOC: HO.ENCR 08:56
PROVIDERS: Visit Provider Internal Medicine Endocrinology, Diabetes & Metabolism
DX: R79.89 Other specified abnormal findings of blood chemistry (principal)
CPT/HCPCS: 99204; G2211